=== PATIENT | male | born 1970 | race American Indian/Alaskan Native ===

== ENCOUNTER 2019-09-01 19:43 | Emergency (ER) | payer BC ==
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
[2019-09-01] MEDS ORDERED: LIDOCAINE-MPF (1%) 10 MG/1 ML VIAL 5 ML INFILTRATI ONE (22:17)
[2019-09-01] MEDS ORDERED: HYDROcodone/ACETAMINOPHEN 5-325 MG TAB PO ONE (22:47)
--- NOTE | 2019-09-01 22:49 | Cat Scan Report ---
CT HEAD WITHOUT CONTRAST INDICATION : Headache. TECHNIQUE: Axial, coronal and sagittal CT imaging was performed from the skull apex through the skul l base without contrast. All CT scans at this location are performed using CT dose reduction for ALA RA by means of automated exposure control. COMPARISON: None available. FINDINGS: PARENCHYMA: No mass, midline shift, hemorrhage, extraaxial collection or acute territorial infarctio n. VENTRICLES: Symmetric and normal in size. SOFT TISSUES: No significant abnormality of the included soft tissues/orbits. BONES: No acute osseous abnormality. SINUSES: No significant abnormality. ADDITIONAL FINDINGS: None. IMPRESSION: 1. No acute intracranial abnormality. Signer Name: Elvin Hughes MD Signed: 09/01/2019 10:45 PM Workstation Name: [id number]
--- NOTE | 2019-09-01 23:20 | Cat Scan Report ---
CT cervical spine wo con INDICATION: neck pain. TECHNIQUE: All CT scans at this location are performed using the following dose modulation technique: Automated exposure control. COMPARISON: None available. FINDINGS: No acute fracture or subluxation is seen in the cervical spine. There is no prevertebral soft tissue swelling. Mild discogenic degenerative change is noted at C5-6 and C6-7. Mild facet arthropathy is noted in the mid cervical spine as well. There is no spinal canal stenosis. Lung apices are clear. Thyroid hypodensities are noted. There are a few punctate thyroid calcificatio ns as well. Soft tissues are otherwise unremarkable. IMPRESSION: 1. No acute fracture. Signer Name: Adalid Oneal MD Signed: 09/01/2019 11:16 PM Workstation Name: [id number].
--- NOTE | 2019-09-02 00:01 | XRay Report ---
LEFT FOREARM 3 VIEWS INDICATION: forearm pain. COMPARISON: No relevant prior imaging study available. FINDINGS: No significant skeletal abnormality. No soft tissue swelling or foreign bodies. IMPRESSION: 1. No acute findings. LEFT HAND 2 VIEWS INDICATION: Left hand pain. COMPARISON: No relevant prior imaging study available. FINDINGS: There is no acute skeletal abnormality. No significant degenerative changes. No soft tissue swelling or foreign bodies. IMPRESSION: 1. No acute findings. RIGHT KNEE 4 VIEWS INDICATION: Right knee pain. COMPARISON: No relevant prior imaging study available. FINDINGS: There is no acute skeletal abnormality. No joint effusion. There is mild patellofemoral joint space n arrowing. No soft tissue swelling or foreign bodies. IMPRESSION: 1. No acute findings. Signer Name: Adalid Oneal MD Signed: 09/01/2019 11:57 PM Workstation Name: [id number]
[2019-09-02 01:06] VITALS: BP 130/84
== END 2019-09-02 01:06 | disposition home or self-care (01) ==
LOC: ED 19:43
DX: S01.01XA Laceration without foreign body of scalp, initial encounter (principal); S50.12XA Contusion of left forearm, initial encounter; S60.511A Abrasion of right hand, initial encounter; R22.41 Localized swelling, mass and lump, right lower limb; V87.8XXA Person injured in other specified noncollision transport accidents involving motor vehicle (traffic), initial encounter; Y93.55 Activity, bike riding; Y92.410 Unspecified street and highway as the place of occurrence of the external cause; Y99.8 Other external cause status
CPT/HCPCS: 70450; 72125

== ENCOUNTER 2019-09-05 20:13 | Emergency (ER) | payer BC ==
--- NOTE | 2019-09-05 21:35 | Emergency Department Report ---
Suture/Staple Removal - [facility] Chief Complaint: Laceration/Recheck/Suture Stated Complaint: REMOVAL OF DIOGENES Time Seen by Provider: 09/05/19 21:28 When Sutures or Kenvil Placed: 5 days Wound Location: scalp ED Review of Systems ROS: Stated complaint: REMOVAL OF DIOGENES Other details as noted in HPI Constitutional: denies: chills, fever, malaise Skin: other (denies wound drinage, redness or increased pain ). denies: rash, lesions Neurological: denies: headache ED Past Medical Hx - Past Medical History Previous Medical History?: No - Social History Smoking Status: Never Smoker Substance Use Type: None - Medications Home Medications: Home Medications Medication Instructions Recorded Confirmed Last Taken Type traMADoL [Ultram] 50 mg PO Q6HR PRN #20 tablet 09/01/19 Unknown Rx Suture Removal Exam - Exam General: Vital signs noted. No distress. Alert and acting appropriately. Wound: No Pathologic Erythema, No Tenderness, No Drainage, No Pus, No Wound Dehiscence Other Systems: All other systems reviewed and are unremarkable. 1 cm healing scabbed over wound noted without erythema, drainage or redness. No tenderness to palpation noted. [address] ED Recheck MDM - Medical Decision Making No erythema, redness or drainage noted of wound. 2 diogenes removed. Patient tolerated procedure well. Discussed wound care and signs and symptoms of infection that should prompt immediate return to the ED, pt verbalizes understanding. Vitals borges normal. He is well appearing and stable for d/c home. Critical care attestation.: If time is entered above; I have spent that time in minutes in the direct care of this critically ill patient, excluding procedure time. ED Disposition Clinical Impression: Removal of staple Disposition: DC-01 TO HOME OR SELFCARE Is pt being admited?: No Condition: Stable Instructions: Acute Wound Care (ED) Referrals: PRIMARY [facility]ARE, [Primary Care Provider] - 3-5 Days
[2019-09-05 21:37] VITALS: BP 140/82
== END 2019-09-05 21:37 | disposition home or self-care (01) ==
LOC: ED 20:13
DX: Z48.01 Encounter for change or removal of surgical wound dressing (principal); T14.8XXD Other injury of unspecified body region, subsequent encounter